=== PATIENT | male | born 1975 | race Caucasian/White ===

== ENCOUNTER 2018-02-22 22:11 | Emergency (ER) | payer OTHER ==
[~2018-02-22] VITALS: Ht 180.3 cm; Wt 128.8 kg
[2018-02-22] MEDS ORDERED: HYDROCODON-ACE1 EAC7 PO (23:04)
[2018-02-22] MEDS ORDERED: SSD CREAM 1% 5050 GM TOP (23:04)
[2018-02-22 23:24] VITALS: BP 175/100
== END 2018-02-22 23:25 | disposition home or self-care (01) ==
LOC: M.ERS 22:11
DX: L55.9 Sunburn, unspecified (principal)

== ENCOUNTER 2021-09-02 03:24 | Emergency (ER) | payer OTHER ==
[~2021-09-02] VITALS: Ht 180.3 cm; Wt 149.7 kg
[~2021-09-02 03:24] MED LIST: HYDROCODON-ACE1 EAC7 PO; SSD CREAM 1% 5050 GM TOP
[2021-09-02] MEDS ORDERED: INSULIN (03:38)
[2021-09-02] MEDS ORDERED: MITIGARE0.6 MG PO (03:47)
[2021-09-02] MEDS ORDERED: HYDROCODON-ACE1 EAC8 PO (03:47)
[2021-09-02] MEDS ORDERED: INDOMETHACIN 2525 MG PO (03:47)
[2021-09-02] MEDS ORDERED: LOPRESSOR50 MG PO (03:50)
[2021-09-02 04:31] VITALS: BP 176/95
== END 2021-09-02 04:35 | disposition home or self-care (01) ==
LOC: M.ERS 03:24
DX: M10.9 Gout, unspecified (principal); M10.172 Lead-induced gout, left ankle and foot; E11.9 Type 2 diabetes mellitus without complications; I10 Essential (primary) hypertension; Z88.8 Allergy status to other drugs, medicaments and biological substances